=== PATIENT | female | born 1965 | race Caucasian/White ===

== ENCOUNTER → 2023-11-29 08:06 | Outpatient (REF) | payer OTHER, SELFPAY | LOC: RCS 08:06 | PROVIDERS: ATTENDING PHYSICIAN Internal Medicine; FAMILY PHYSICIAN Family Medicine | DX: R00.2 Palpitations (principal) | CPT/HCPCS: 93225; 93226 ==

== ENCOUNTER → 2024-03-16 08:06 | Outpatient (REF) | payer OTHER, SELFPAY | LOC: HWRCS 08:06 | PROVIDERS: ATTENDING PHYSICIAN Internal Medicine; FAMILY PHYSICIAN Family Medicine | DX: R00.2 Palpitations (principal) | CPT/HCPCS: 93306 ==

== ENCOUNTER → 2024-04-04 11:58 | Outpatient (REF) | payer OTHER, SELFPAY | LOC: WDC 11:58 | PROVIDERS: ATTENDING PHYSICIAN Obstetrics & Gynecology Gynecology; FAMILY PHYSICIAN Family Medicine | DX: Z12.31 Encounter for screening mammogram for malignant neoplasm of breast (principal) | CPT/HCPCS: 77063; 77067 ==

== ENCOUNTER 2024-04-24 06:13 | Day surgery (SDC) | payer OTHER, SELFPAY ==
[2024-04-24 06:15] VITALS: BMI 27.5
[2024-04-24 06:20] VITALS: BMI 27.5
[2024-04-24 06:25] VITALS: BP 149/78
[2024-04-24] MEDS: TYLENOL 1000 MG PO (06:42)
[2024-04-24 08:13] VITALS: BP 96/71
[2024-04-24 08:15] VITALS: BP 114/66
--- NOTE | 2024-04-24 08:20 | OR.RPT ---
Operative Report
Operative Report
Primary Surgeon: Jack
Pre-op Diagnosis: Neck lipoma
Post-op Diagnosis: Same
Procedure Performed: Excision of neck lipoma
Anesthesia Type: MAC local
Specimen / Cultures: Lipoma
Estimated Blood Loss: 1cc
Complications: None immediate
Operative Findings: 4.5cm x 3cm x 1.5cm lipoma excised in toto
Date of Surgery: 04/24/24
Indications: This 58F developed a symptomatic soft tissue mass of her inferior left neck. Excision was elected.
PROCEDURE: After informed consent was obtained, the patient was marked and then brought to the operative suite and placed supine on the operating table. The patient was sedated, prepped and draped in the usual sterile manner and an adequate local
anesthetic was administered using lidocaine 1% with epinephrine.
A full thickness skin incision was made with a #15 blade, and dissection was carried down to the capsule using electrocautery. The capsule was gently grasped with an allis clamp and the surrounding attachments were carefully taken down using a
hemostat to dissect tissue and electrocautery to divide. Ultimately the mass was liberated and delivered easily through the wound intact, and passed off the table as specimen. The wound was then irrigated with copious sterile saline, and hemostasis
was obtained using Bovie electrocautery. The skin was approximated with 3-0 Vicryl deep dermal interrupted sutures and 4-0 monocryl suture in a subcuticular fashion. Topical skin glue was then applied. All surgical counts were reported as correct.
The patient tolerated the procedure well and was taken to the PACU in stable condition.
[2024-04-24 08:30] VITALS: BP 115/71
[2024-04-24 08:45] VITALS: BP 98/72
== END 2024-04-24 09:00 | disposition home or self-care (01) ==
LOC: SDS 06:13
PROVIDERS: ATTENDING PHYSICIAN Surgery
DX: D17.0 Benign lipomatous neoplasm of skin and subcutaneous tissue of head, face and neck (principal)
CPT/HCPCS: 11426; 88304

== ENCOUNTER 2024-08-27 12:47 | Emergency (ER) | payer OTHER, SELFPAY ==
[2024-08-27 12:54] VITALS: BP 158/86; BMI 30.1
--- NOTE | 2024-08-27 14:21 | ED.GENMED ---
History of Present Illness
General
Chief Complaint: Musculo-Skeletal Complaint
Source: patient
Exam Limitations: none
Time Seen by Provider: 08/27/24 14:08
History of Present Illness
History of Present Illness:
See MDM
Past History
Past History
ED Past Medical History: None; Negative Asthma, HTN, Hypercholesterolemia or NIDDM
ED Past Surgical History: (X2) and Other (tummy tuck)
Social History
Tobacco: Non-smoker
Alcohol: None
Drug: None
Personal:
Living: with family
Phy Exam
Physical Exam
Physical Exam:
See MDM
Course
Orders/Labs/Results
Orders:
Orders
08/27/24 12:48
Knee, Left 4 or More Views [CR Knee - Left 4 Or More View*] Urgent
Comment:
Reason For Exam: fall off a ladder
08/27/24 14:19
Knee Immobilizer Left-Treatmen ONCE
Vital Signs
Initial and Last Documented VS:
Initial Vital Signs
Pulse Resp BP Pulse Ox
87 18 158/86 98
08/27/24 12:54 08/27/24 12:54 08/27/24 12:54 08/27/24 12:54
Last Documented Vital Signs
Pulse Resp BP Pulse Ox
87 18 158/86 98
08/27/24 12:54 08/27/24 12:54 08/27/24 12:54 08/27/24 12:54
MDM/Problems Addressed
Differential Diagnosis Includes:
HPI and MDM Narrative:
58-year-old female presenting with left knee pain. Patient fell off a ladder and injured her left knee. Patient is concerned because she was told in the past that she has ligament damage in this knee. Patient is having trouble bearing weight.
X-ray done prior to my assessment and no obvious fracture.
Tenderness is localized to the left lateral knee. No evidence of quadricep or hamstring or gastroc involvement. The distal extremity is otherwise neurovascularly intact
Physical exam
General: Well appearing and non-toxic
HEENT: protecting airway
Neck: appears supple
CV: No evidence of cyanosis
Resp: No accessory muscle use
Abd: Non-distended
Extremities: Mild tenderness to left lateral knee. Subtle effusion noted. Negative Daniel's test
Neuro: alert
Psych: Normal affect
Skin: Intact
Problems Addressed including Acute and Chronic Conditions affecting care:
1. Left knee injury
Acuity: acute
Prognosis: stable
Details: We discussed possible meniscal versus ligament injury. Will place in the immobilizer and give crutches
Differential Diagnosis (but not limited to): Knee fracture, meniscal tear
Drug therapy (if applicable): OTC meds, please see d/c instruction regarding Rx drugs
Amount and/or Complexity of Data Reviewed
Clinical info obtained from: Patient
External data reviewed: N/A
Labs I independently reviewed (but not limited to): N/A
Radiology: X-ray independently reviewed: No fracture to left knee noted
Pulse Ox: not hypoxic
EKG independently reviewed: N/A
Lockstitch Cup Setter: N/A
Critical Care: N/A
Risk of Complication:
Social Determinants of health: Good social support
Discussed with other providers: N/A
Escalation of Care includes Admit/Obs: After being observed in the Emergency Department, pt stable for discharge.
Occasional wrong word or 'sound a like' substitutions may have occurred due to the inherent limitations of voice recognition software. Read the chart carefully and recognize, using context, where substitutions have occurred.
*Critical Care Note
Total Time (30-74mins, 75-104mins- exclusive of procedures): Not Applicable
ED Attending Note
-
Portions of this chart may have been created with voice recognition software.� Occasional wrong word or��sound alike� substitutions may have occurred due to the inherent limitations of voice recognition software.
Discharge Plan
Departure
Patient Disposition: Home (Routine Discharge)
Date of Disposition: 08/27/24
Time of Disposition: 14:29
Patient with high blood pressure during this ER visit?: Yes
Discharge Problem:
Left knee injury
Instructions: Knee Sprain (DC), BLOOD PRESSURE
Prescriptions:
New
tramadol 50 mg tablet
50 mg PO BID PRN (Reason: pain) Qty: 14 0RF
ondansetron 4 mg Tablet,Disintegrating
4 mg PO BIDPRN PRN (Reason: nausea/vomiting) Qty: 10 0RF
No Action
levothyroxine 75 MCG tablet
75 mcg PO DAILY
lamotrigine [Lamictal XR] 300 MG tablet extended release 24hr
50 mg PO QPM
diltiazem HCl 120 mg Capsule,Extended Release 12 Hr
120 mg PO DAILY
valsartan 160 mg Tablet
160 mg PO DAILY
bupropion HCl
200 mg PO DAILY
clonazepam 1 mg Tablet
1 mg PO HS PRN (Reason: anxiety, sleep)
Referrals:
Antione Yao MD [Active] -
Activity Restrictions/Additional Instructions:
Please return for any worsening symptoms.
You may return at any time if you have further concerns.
Please follow up with the orthopedist at the first available appointment, preferably this week.
Thank you for choosing [facility].
Interventions
Interventions:
*Risk Screen - Suicide Last Done: 08/27/24 12:54
*ED COVID-19 Vaccine History Last Done: 08/27/24 12:54
Discharge Date and Time
Print Language: POLISH
== END 2024-08-27 14:44 | disposition home or self-care (01) ==
LOC: EMR 12:47
PROVIDERS: EMERGENCY PHYSICIAN Student in an Organized Health Care Education/Training Program; FAMILY PHYSICIAN Family Medicine
DX: S89.92XA Unspecified injury of left lower leg, initial encounter (principal); W11.XXXA Fall on and from ladder, initial encounter
CPT/HCPCS: 29505; 99283; 73564